=== PATIENT | male | born 1965 | race Caucasian/White ===

== ENCOUNTER → 2016-08-01 | Outpatient (REF) | payer OTHER | LOC: M LAB REF 09:46 | PROVIDERS: ATTEND Physician Assistant | DX: J02.9 Acute pharyngitis, unspecified (principal) ==

== ENCOUNTER → 2016-11-05 | Outpatient (CLI) | payer OTHER ==
[~2016-11-05] MED LIST: NASA1SPR; PROA1AER INH; PULM90IN INH; TUMERIC PO
[2016-11-06 09:55] LABS: HEPATITIS B SURFACE ANTIBODY POSITIVE (POSITIVE)
== END ==
LOC: M WUC 12:38
PROVIDERS: ATTEND Physician Assistant
DX: Z02.0 Encounter for examination for admission to educational institution (principal)

== ENCOUNTER → 2016-11-10 | Outpatient (REF) | payer OTHER | LOC: M LAB REF 09:40 | PROVIDERS: ATTEND Physician Assistant | DX: J02.9 Acute pharyngitis, unspecified (principal) ==

== ENCOUNTER 2016-12-01 15:09 | Emergency (ER) | payer BC, OTHER ==
[~2016-12-01] VITALS: Ht 182.9 cm; Wt 77.1 kg
--- NOTE | 2016-12-01 15:56 | REP ---
CT Head without contrast HISTORY: Trauma COMPARISON: None There is no intraparenchymal hemorrhage, acute infarct, mass or midline shift. The ventricular system is normal in appearance. There is no extra cerebral collection. There is no fracture. The visualized sinuses are clear. IMPRESSION: There is no intracranial lesion. Signed by Piotr Barba MD 12/01/2016 03:47 P
[2016-12-01] MEDS ORDERED: ACETAMINOPHEN 325 MG TAB PO ONE (16:15)
[2016-12-01] MEDS ORDERED: BACLOFEN 10 MG TAB PO ONE (16:15)
[2016-12-01] MEDS ORDERED: TYLE325T5 PO (16:22)
[2016-12-01] MEDS ORDERED: BACL10TA2 PO (16:22)
[2016-12-01 16:25] VITALS: BP 148/77
--- NOTE | 2016-12-02 06:13 | REP ---
CT CERVICAL SPINE WITHOUT CONTRAST: HISTORY: Injury. There is no acute fracture or subluxation. A disc bulge is present at the C4-5 level. Disc bulges with associated osteophyte formation are present at the C5-6 and C6-7 levels. There is minimal narrowing of the spinal canal. Uncinate process hypertrophy is present at the C5-6 and C6-7 levels. This produces minimal to mild narrowing of the neural foramina. The C5-6 and C6-7 intervertebral discs are decreased in height consistent with disc degeneration. IMPRESSION: 1. There is no acute fracture or subluxation. 2. There is cervical spondylosis at the C4-5 through C6-7 levels. Signed by Piotr Barba MD 12/02/2016 08:22 A
== END 2016-12-01 16:40 | disposition home or self-care (01) ==
LOC: M ED 15:32
DX: S00.83XA Contusion of other part of head, initial encounter (principal); S16.1XXA Strain of muscle, fascia and tendon at neck level, initial encounter; W18.2XXA Fall in (into) shower or empty bathtub, initial encounter; Y92.89 Other specified places as the place of occurrence of the external cause; Y93.E1 Activity, personal bathing and showering; Y99.8 Other external cause status; R03.0 Elevated blood-pressure reading, without diagnosis of hypertension; J45.909 Unspecified asthma, uncomplicated; Z79.899 Other long term (current) drug therapy; Z79.51 Long term (current) use of inhaled steroids; Z91.011 Allergy to milk products; Z88.6 Allergy status to analgesic agent; Z91.018 Allergy to other foods; Z91.012 Allergy to eggs

== ENCOUNTER → 2017-07-07 | Outpatient (CLI) | payer OTHER, BC ==
[2017-07-07 18:52] LABS: COMPLEMENT C3 105 MG/DL (90-180); COMPLEMENT C4 24.1 MG/DL (10-40); IMMUNOGLOBULIN G 716 MG/DL (681-1648); IMMUNOGLOBULIN M 88.4 MG/DL (40-230)
[2017-07-09 08:16] LABS: ALPHA 1 ANTITRYPSIN 118 mg/dL (90-200)
== END ==
LOC: M WUC 12:13
DX: J30.1 Allergic rhinitis due to pollen (principal); J30.81 Allergic rhinitis due to animal (cat) (dog) hair and dander; R05 Cough

== ENCOUNTER → 2017-09-16 | Outpatient (CLI) | payer OTHER, BC | LOC: M WUC 09:53 | DX: J30.1 Allergic rhinitis due to pollen (principal); J30.81 Allergic rhinitis due to animal (cat) (dog) hair and dander; J30.89 Other allergic rhinitis; L20.9 Atopic dermatitis, unspecified; J45.20 Mild intermittent asthma, uncomplicated | CPT/HCPCS: 82785 ==

== ENCOUNTER → 2017-09-29 | Outpatient (REF) | payer OTHER | LOC: M LAB REF 12:11 | DX: J02.9 Acute pharyngitis, unspecified (principal) | CPT/HCPCS: 87081 ==

== ENCOUNTER → 2017-12-08 | Outpatient (CLI) | payer SELFPAY ==
[2017-12-10 08:42] LABS: HEPATITIS B SURFACE ANTIBODY POSITIVE (POSITIVE)
[2017-12-10 09:03] LABS: HIV 1&2 SCREEN CENTAUR NEGATIVE (NEGATIVE)
[2017-12-10 09:03] LABS: HEPATITIS C VIRUS ABY INDEX 0.1 INDEX (<0.8)
== END ==
LOC: M ADAMS 15:11
DX: Z11.59 Encounter for screening for other viral diseases (principal); Z11.4 Encounter for screening for human immunodeficiency virus [HIV]; W46.1XXA Contact with contaminated hypodermic needle, initial encounter; X58.XXXA Exposure to other specified factors, initial encounter; Y92.9 Unspecified place or not applicable; Y93.9 Activity, unspecified
CPT/HCPCS: 86706

== ENCOUNTER → 2018-01-22 | Outpatient (CLI) | payer OTHER ==
[2018-01-23 10:07] LABS: HEPATITIS B SURFACE ANTIBODY POSITIVE (POSITIVE)
[2018-01-23 10:33] LABS: HEPATITIS C VIRUS ABY INDEX 0.4 INDEX (<0.8)
[2018-01-23 10:33] LABS: HIV 1&2 SCREEN CENTAUR NEGATIVE (NEGATIVE)
== END ==
LOC: M WUC 09:44
DX: Z11.4 Encounter for screening for human immunodeficiency virus [HIV] (principal); Z11.59 Encounter for screening for other viral diseases; W46.1XXA Contact with contaminated hypodermic needle, initial encounter; Y92.89 Other specified places as the place of occurrence of the external cause
CPT/HCPCS: 86706

== ENCOUNTER → 2018-02-09 | Outpatient (CLI) | payer OTHER, BC ==
[2018-02-09 17:45] LABS: BASO # 0.1 10^3/uL (0.0-0.2); BASO % 1.2 % (0.0-1.0); EOS # 0.8 10^3/uL (0.0-0.50); EOS % 11.4 % (0.0-3.0); HEMOGLOBIN 15.3 g/dl (13.5-17.5); IMMATURE GRANULOCYTE % 0.4 % (0-3.0); LYMPH # 1.3 10^3/uL (1.5-4.5); LYMPH % 19.5 % (24.0-44.0); MEAN CORPUSCULAR HEMOGLOBIN 32.7 pg (27.0-33.0); MEAN CORPUSCULAR HGB CONC 32.6 g/dl (32.0-36.5); MEAN CORPUSCULAR VOLUME 100.4 fl (80.0-96.0); MONO # 0.5 10^3/uL (0.0-0.8); MONO % 7.5 % (0.0-5.0); NEUTROPHILS # 4.1 10^3/uL (1.8-7.7); PLATELET COUNT, AUTOMATED 288 10^3/uL (150-450); RED BLOOD COUNT 4.68 10^6/uL (4.30-6.10); RED CELL DISTRIBUTION WIDTH 13.5 % (11.5-14.5); WHITE BLOOD COUNT 6.8 10^3/uL (4.0-10.0)
[2018-02-09 17:57] LABS: ALBUMIN/GLOBULIN RATIO 1.33 (1.00-1.93); ALKALINE PHOSPHATASE 51 U/L (45-117); ALT/SGPT 27 U/L (12-78); AST/SGOT 17 U/L (7-37); BILIRUBIN,DIRECT 0.1 MG/DL (0.0-0.2); BILIRUBIN,TOTAL 0.4 MG/DL (0.2-1.0); BLOOD UREA NITROGEN 10 MG/DL (7-18); GLOMERULAR FILTRATION RATE > 60.0 (>56)
[2018-02-11 09:10] LABS: HEPATITIS B SURFACE ANTIGEN NEGATIVE (NEGATIVE)
[2018-02-11 09:27] LABS: HEPATITIS B CORE ANTIBODY IGM NEGATIVE (NEGATIVE)
[2018-02-11 09:27] LABS: HEPATITIS C VIRUS ABY INDEX 0.1 INDEX (<0.8)
[2018-02-11 09:29] LABS: HEPATITIS A ANTIBODY IGM NEGATIVE (NEGATIVE)
== END ==
LOC: M WUC 11:40
DX: L20.89 Other atopic dermatitis (principal)
CPT/HCPCS: 82565

== ENCOUNTER → 2018-04-21 | Outpatient (CLI) | payer OTHER ==
[2018-04-22 10:14] LABS: HEPATITIS C VIRUS ABY INDEX 0.1 INDEX (<0.8)
[2018-04-22 10:14] LABS: HEPATITIS A ANTIBODY IGM NEGATIVE (NEGATIVE); HEPATITIS B CORE ANTIBODY IGM NEGATIVE (NEGATIVE); HEPATITIS B SURFACE ANTIGEN NEGATIVE (NEGATIVE); HIV 1&2 SCREEN CENTAUR NEGATIVE (NEGATIVE)
== END ==
LOC: M WUC 12:02
DX: Z11.59 Encounter for screening for other viral diseases (principal); W46.0XXD Contact with hypodermic needle, subsequent encounter
CPT/HCPCS: 87340

== ENCOUNTER → 2018-04-28 | Outpatient (CLI) | payer OTHER, BC ==
[2018-04-28 13:52] LABS: BASO # 0.1 10^3/uL (0.0-0.2); BASO % 1.3 % (0.0-1.0); EOS % 11.5 % (0.0-3.0); HEMATOCRIT 49.3 % (42.0-52.0); HEMOGLOBIN 16.4 g/dl (13.5-17.5); IMMATURE GRANULOCYTE % 0.4 % (0-3.0); LYMPH # 1.6 10^3/uL (1.5-4.5); MEAN CORPUSCULAR HEMOGLOBIN 32.3 pg (27.0-33.0); MEAN CORPUSCULAR HGB CONC 33.3 g/dl (32.0-36.5); MEAN CORPUSCULAR VOLUME 97.2 fl (80.0-96.0); MONO # 0.5 10^3/uL (0.0-0.8); MONO % 5.9 % (0.0-5.0); NEUTROPHILS # 5.2 10^3/uL (1.8-7.7); NEUTROPHILS % 61.9 % (36.0-66.0); PLATELET COUNT, AUTOMATED 306 10^3/uL (150-450); RED BLOOD COUNT 5.07 10^6/uL (4.30-6.10); RED CELL DISTRIBUTION WIDTH 13.4 % (11.5-14.5); WHITE BLOOD COUNT 8.4 10^3/uL (4.0-10.0)
[2018-04-28 14:33] LABS: ALBUMIN 4.3 GM/DL (3.2-5.2); ALBUMIN/GLOBULIN RATIO 1.54 (1.00-1.93); ALKALINE PHOSPHATASE 57 U/L (45-117); ALT/SGPT 51 U/L (12-78); ANION GAP 6 MEQ/L (8-16); AST/SGOT 34 U/L (7-37); BILIRUBIN,TOTAL 0.4 MG/DL (0.2-1.0); BLOOD UREA NITROGEN 15 MG/DL (7-18); CALCIUM LEVEL 9.5 MG/DL (8.5-10.1); CARBON DIOXIDE LEVEL 29 MEQ/L (21-32); CHLORIDE LEVEL 104 MEQ/L (98-107); CREATININE FOR GFR 1.07 MG/DL (0.70-1.30); FREE THYROXINE INDEX 2.6 % (1.4-3.8); GLOMERULAR FILTRATION RATE > 60.0 (>56); GLUCOSE, FASTING 91 MG/DL (70-100); POTASSIUM SERUM 4.4 MEQ/L (3.5-5.1); RHEUMATOID FACTOR QUANT < 10.0 IU/ML (<15.0); SODIUM LEVEL 139 MEQ/L (136-145); T UPTAKE 31 % (33-40); THYROXINE (T4) 8.3 UG/DL (4.5-12.0); TOTAL PROTEIN 7.1 GM/DL (6.4-8.2)
[2018-04-29 10:39] LABS: THYROID PEROXIDASE ANTIBODY < 28.0 U/ML (<60.0)
[2018-04-29 10:41] LABS: THYROGLOBULIN ANTIBODY 28.7 U/ML (<60.0)
[2018-05-01 00:09] LABS: ANTI DOUBLE STRAND-DNA AB 1 IU/mL (0-9); ANTINUCLEAR ANTIBODIES DIRECT Negative (Negative); COMPLEMENT TOTAL (CH50) 50 U/mL (>41); D001-IgE D pteronyssinus >100 kU/L (Class VI); E005-IgE Dog Dander > 100 kU/L (Class VI); G002-IgE Bermuda Grass 3.54 kU/L (Class III); M003 IgE Aspergillus fumigatu 4.05 kU/L (Class IV); RNP ANTIBODIES <0.2 AI (0.0-0.9); SJOGREN'S ANTI SS-A <0.2 AI (0.0-0.9); SJOGREN'S ANTI SS-B <0.2 AI (0.0-0.9); SMITH ANTIBODIES <0.2 AI (0.0-0.9); T001-IgE Maple/Box Elder 1.91 kU/L (Class III); T003-IgE Common Silver Birch 4.99 kU/L (Class IV); T006-IgE Cedar, Mountain 1.63 kU/L (Class III); T007-IgE Oak, White 2.23 kU/L (Class III); T008-IgE Elm, American 2.47 kU/L (Class III); T015-IgE Ash, White 2.88 kU/L (Class III); T070-IgE White Mulberry 0.54 kU/L (Class I); W001-IgE Ragweed, Short 6.12 kU/L (Class IV); W009-IgE Plantain, English 2.37 kU/L (Class III); W014-IgE Pigweed, Rough 1.38 kU/L (Class II); W018-IgE Sheep Sorrel 0.87 kU/L (Class II)
== END ==
LOC: M WUC 12:02
DX: L20.9 Atopic dermatitis, unspecified (principal); L50.9 Urticaria, unspecified; D82.4 Hyperimmunoglobulin E [IgE] syndrome
CPT/HCPCS: 82785

== ENCOUNTER → 2018-06-09 | Outpatient (CLI) | payer OTHER ==
[2018-06-10 09:48] LABS: HEPATITIS A ANTIBODY IGM NEGATIVE (NEGATIVE); HEPATITIS B CORE ANTIBODY IGM NEGATIVE (NEGATIVE); HEPATITIS B SURFACE ANTIGEN NEGATIVE (NEGATIVE); HIV 1&2 SCREEN CENTAUR NEGATIVE (NEGATIVE)
[2018-06-10 09:48] LABS: HEPATITIS C VIRUS ABY INDEX 0.2 INDEX (<0.8)
== END ==
LOC: M WUC 09:27
DX: Z11.59 Encounter for screening for other viral diseases (principal); W46.0XXD Contact with hypodermic needle, subsequent encounter
CPT/HCPCS: 87340

== ENCOUNTER → 2018-07-15 | Outpatient (CLI) | payer BC, OTHER ==
[~2018-07-15] MED LIST changes: +BACL10TA2 PO; -PROA1AER INH; +PROAAER10 INH; +TYLE325T5 PO
--- NOTE | 2018-07-15 16:00 | REP ---
LEFT HAND, FOUR VIEWS: HISTORY: Pain. There is no acute fracture or dislocation. The joint spaces are normal in appearance. IMPRESSION: There is no acute fracture or dislocation. Electronically Signed by Piotr Barba MD 07/15/2018 04:03 P
== END ==
LOC: M WUC 15:06
PROVIDERS: ATTEND Physician Assistant
DX: L03.114 Cellulitis of left upper limb (principal); M79.642 Pain in left hand

== ENCOUNTER 2018-08-19 07:29 | Day surgery (SDC) | payer BC, OTHER ==
[~2018-08-19] VITALS: Ht 182.9 cm; Wt 75.7 kg
[~2018-08-19 07:29] MED LIST changes: +FLUT11IN INH; +VITATAB11 PO
[2018-08-19] MEDS ORDERED: NS 1,000 ML IV ONE (07:45)
[2018-08-19] MEDS ORDERED: PROPOFOL 200 MG/20 ML VIAL As Ordered ONE (08:59)
--- NOTE | 2018-08-19 09:03 | ROOR ---
Patient Name: Adriel Mcneil Procedure Date: 08/19/2018 8:36 AM Date of : 1965 Age: 52 Room: [facility] Gender: Male Note Status: Finalized Procedure: Upper Endoscopy + Biopsies + Balloon Dilatation Indications: Dysphagia Providers: Dany Grover MD Referring MD: VIDHYA MONTIEL JR, MD Requesting Provider: Medicines: Monitored Anesthesia Care Complications: No immediate complications. Procedure: Pre-Anesthesia Assessment: - The heart rate, respiratory rate, oxygen saturations, blood pressure, adequacy of pulmonary ventilation, and response to care were monitored throughout the procedure. The Endoscope was introduced through the mouth, and advanced to the second part of duodenum. The upper GI endoscopy was accomplished without difficulty. The patient tolerated the procedure well. Findings: The Z-line was regular and was found 40 cm from the incisors. A low-grade of narrowing Schatzki ring was found at the gastroesophageal junction. A TTS dilator was passed through the scope. Dilation with an 18-19-20 mm balloon dilator was performed to 20 mm. The dilation site was examined and showed complete resolution of luminal narrowing. Mucosal changes including longitudinal furrows were found in the mid esophagus. Biopsies were taken with a cold forceps for histology. No other significant abnormalities were identified in a careful examination of the stomach. The exam of the duodenum was otherwise normal. Impression: - Z-line regular, 40 cm from the incisors. - Low-grade of narrowing Schatzki ring. Dilated. - Esophageal mucosal changes suspicious for eosinophilic esophagitis. Biopsied. - The examination was otherwise normal. Recommendation: - Await pathology results. - Discharge patient to home. - Continue present medications. - Return to referring physician. - Repeat upper endoscopy to evaluate the response to therapy. - Return to referring physician. - The findings and recommendations were discussed with the patient's family. Dany Grover MD Dany Grover MD 08/19/2018 9:02:50 AM This report has been signed electronically. Number of Addenda: 0 Note Initiated On: 08/19/2018 8:36 AM Estimated Blood Loss: Estimated blood loss: none.
--- NOTE | 2018-08-19 09:16 | ROOR ---
Patient Name: Adriel Mcneil Procedure Date: 08/19/2018 8:37 AM Date of : 1965 Age: 52 Room: [facility] Gender: Male Note Status: Finalized Procedure: Total Colonoscopy to Cecum Indications: Screening for colorectal malignant neoplasm Providers: Dany Grover MD Referring MD: VIDHYA MONTIEL JR, MD Requesting Provider: Medicines: Monitored Anesthesia Care Complications: No immediate complications. Procedure: Pre-Anesthesia Assessment: - The heart rate, respiratory rate, oxygen saturations, blood pressure, adequacy of pulmonary ventilation, and response to care were monitored throughout the procedure. The Colonoscope was introduced through the anus and advanced to the cecum, identified by appendiceal orifice and ileocecal valve. The colonoscopy was performed without difficulty. The patient tolerated the procedure well. The quality of the bowel preparation was excellent. Findings: The perianal and digital rectal examinations were normal. Non-bleeding internal hemorrhoids were found during retroflexion. The hemorrhoids were small and Grade I (internal hemorrhoids that do not prolapse). No other significant abnormalities were identified in a careful examination of the remainder of the colon. The exam was otherwise without abnormality on direct and retroflexion views. Impression: - Non-bleeding internal hemorrhoids. - The examination was otherwise normal on direct and retroflexion views. - No specimens collected. - The exam was otherwise normal to the cecum. Recommendation: - Patient has a contact number available for emergencies. The signs and symptoms of potential delayed complications were discussed with the patient. Return to normal activities tomorrow. Written discharge instructions were provided to the patient. - High fiber diet. - Discharge patient to home. - Continue present medications. - Repeat colonoscopy in 10 years for screening purposes. - Return to referring physician. - The findings and recommendations were discussed with the patient's family. Dany Grover MD Dany Grover MD 08/19/2018 9:16:37 AM This report has been signed electronically. Number of Addenda: 0 Note Initiated On: 08/19/2018 8:37 AM Estimated Blood Loss: Estimated blood loss: none.
[2018-08-19] MEDS ORDERED: LIDOCAINE 2% INJ 100 MG/5 ML SDV (FOR ANES.) As Ordered ONE (09:43)
[2018-08-19 09:46] VITALS: BP 140/85
== END 2018-08-19 09:54 | disposition home or self-care (01) ==
LOC: M OPP 07:29
PROVIDERS: ATTEND Internal Medicine Gastroenterology
DX: Z12.11 Encounter for screening for malignant neoplasm of colon (principal); K64.0 First degree hemorrhoids; K22.2 Esophageal obstruction; K22.8 Other specified diseases of esophagus; R13.10 Dysphagia, unspecified; Z88.0 Allergy status to penicillin; Z88.8 Allergy status to other drugs, medicaments and biological substances; J30.2 Other seasonal allergic rhinitis; Z91.040 Latex allergy status; Z91.010 Allergy to peanuts; Z91.011 Allergy to milk products; Z91.012 Allergy to eggs; Z91.018 Allergy to other foods

== ENCOUNTER → 2018-12-14 | Outpatient (CLI) | payer OTHER ==
[2018-12-15 09:51] LABS: HIV 1&2 SCREEN CENTAUR NEGATIVE (NEGATIVE)
[2018-12-16 11:22] LABS: HEPATITIS A ANTIBODY IGM NEGATIVE (NEGATIVE); HEPATITIS B CORE ANTIBODY IGM NEGATIVE (NEGATIVE); HEPATITIS B SURFACE ANTIGEN NEGATIVE (NEGATIVE)
== END ==
LOC: M WUC 12:55
PROVIDERS: ATTEND Physician Assistant
DX: Z11.4 Encounter for screening for human immunodeficiency virus [HIV] (principal); W46.0XXD Contact with hypodermic needle, subsequent encounter; X58.XXXA Exposure to other specified factors, initial encounter

== ENCOUNTER → 2019-04-27 | Outpatient (CLI) | payer OTHER ==
[2019-04-27 13:04] LABS: BASO # 0.1 10^3/uL (0.0-0.2); BASO % 1.3 % (0.0-1.0); EOS # 1.4 10^3/uL (0.0-0.5); EOS % 15.9 % (0.0-3.0); HEMATOCRIT 45.4 % (42.0-52.0); LYMPH # 1.5 10^3/uL (1.5-5.0); LYMPH % 16.7 % (24.0-44.0); MONO # 0.9 10^3/uL (0.0-0.8); MONO % 9.7 % (0.0-5.0); NEUTROPHILS # 4.9 10^3/uL (1.5-8.5); NEUTROPHILS % 56.2 % (36.0-66.0); PLATELET COUNT, AUTOMATED 286 10^3/uL (150-450); RED BLOOD COUNT 4.54 10^6/uL (4.30-6.10); WHITE BLOOD COUNT 8.7 10^3/uL (4.0-10.0)
[2019-04-27 13:43] LABS: FREE THYROXINE INDEX 3.4 % (1.4-3.8); THYROID STIMULATING HORMONE 0.965 uIU/ML (0.358-3.740); THYROXINE (T4) 8.4 UG/DL (4.5-12.0)
== END ==
LOC: M WUC 09:29
PROVIDERS: ATTEND Nurse Practitioner Family
DX: R53.83 Other fatigue (principal); L65.9 Nonscarring hair loss, unspecified

== ENCOUNTER → 2019-07-08 | Outpatient (REF) | payer OTHER | LOC: M LAB REF 14:22 | PROVIDERS: ATTEND Internal Medicine | DX: D72.1 Eosinophilia (principal) ==

== ENCOUNTER → 2019-07-13 | Outpatient (CLI) | payer BC, OTHER ==
--- NOTE | 2019-07-14 03:26 | REP ---
Clinical: Trauma. Open wound. Technique: AP, lateral, bilateral oblique views of the left foot. Findings: The osseous structures and joint spaces are intact and normal. There is no evidence for acute fracture or dislocation. Surrounding soft tissues are unremarkable. No subcutaneous emphysema or radiodense foreign body. Impression: Normal left foot examination. No foreign body or subcutaneous emphysema. No acute fracture or dislocation. Electronically Signed by Davi Nur MD 07/14/2019 03:17 A
== END ==
LOC: M WUC 10:01
PROVIDERS: ATTEND Physician Assistant
DX: S91.102A Unspecified open wound of left great toe without damage to nail, initial encounter (principal); W18.30XA Fall on same level, unspecified, initial encounter; Y92.009 Unspecified place in unspecified non-institutional (private) residence as the place of occurrence of the external cause

== ENCOUNTER → 2019-07-23 | Outpatient (CLI) | payer BC, OTHER ==
--- NOTE | 2019-07-23 17:52 | REP ---
Left toes four views: Mineralization is normal. There are no lytic, blastic or destructive skeletal changes. The joint spaces are unremarkable. There are no calcifications or foreign bodies. No fracture or dislocation. Impression: Negative left hilus. Electronically Signed by Malik Field MD 07/23/2019 05:44 P
== END ==
LOC: M WUC 13:22
PROVIDERS: ATTEND Physician Assistant
DX: L03.032 Cellulitis of left toe (principal)

== ENCOUNTER → 2020-02-23 | Outpatient (CLI) | payer BC, OTHER ==
[2020-02-23 14:16] LABS: IMMUNOGLOBULIN M 89.2 MG/DL (40-230)
[2020-02-25 16:09] LABS: ALPHA 1 ANTITRYPSIN 127 mg/dL (101-187); F004-IgE Wheat 3.89 kU/L (Class III); F026-IgE Pork 1.14 kU/L (Class II); F027-IgE Beef 0.29 kU/L (Class 0/I); FX02-IgE Food Mix (Sea Foods) Positive (.); G002-IgE Bermuda Grass 2.12 kU/L (Class III); M001-IgE Penicillium chrysogen 0.76 kU/L (Class II); M003 IgE Aspergillus fumigatu 3.11 kU/L (Class III); T001-IgE Maple/Box Elder 2.01 kU/L (Class III); T007-IgE Oak, White 6.21 kU/L (Class IV); T008-IgE Elm, American 7.29 kU/L (Class IV); T015-IgE Ash, White 7.66 kU/L (Class IV); T070-IgE White Mulberry 0.49 kU/L (Class I); W001-IgE Ragweed, Short 5.26 kU/L (Class IV); W009-IgE Plantain, English 6.15 kU/L (Class IV); W014-IgE Pigweed, Rough 0.66 kU/L (Class II); W018-IgE Sheep Sorrel 1.51 kU/L (Class III)
== END ==
LOC: M WUC 09:42
PROVIDERS: ATTEND Nurse Practitioner Family
DX: L20.9 Atopic dermatitis, unspecified (principal); J30.1 Allergic rhinitis due to pollen; J30.81 Allergic rhinitis due to animal (cat) (dog) hair and dander; J30.89 Other allergic rhinitis

== ENCOUNTER → 2020-08-28 | Outpatient (CLI) | payer BC, OTHER ==
--- NOTE | 2020-08-29 07:28 | REP ---
INDICATION: PAIN COMPARISON: None. TECHNIQUE: AP, lateral, bilateral oblique and sunrise views. FINDINGS: Lateral and sunrise views best demonstrate anterior/prepatellar swelling. No evidence for acute fracture or dislocation. No significant overt arthritic changes. IMPRESSION: Anterior swelling. <Electronically signed by Davi Nur > 08/28/20 [id number]
== END ==
LOC: M WUC 13:47
PROVIDERS: ATTEND Physician Assistant
DX: M25.561 Pain in right knee (principal)

== ENCOUNTER → 2021-08-24 | Outpatient (CLI) | payer BC, OTHER | LOC: M WUC 15:41 | PROVIDERS: ATTEND Physician Assistant | DX: S80.02XA Contusion of left knee, initial encounter (principal); X58.XXXA Exposure to other specified factors, initial encounter; Y92.89 Other specified places as the place of occurrence of the external cause; Y93.89 Activity, other specified; Y99.8 Other external cause status ==

== ENCOUNTER → 2021-09-11 | Outpatient (REF) | payer OTHER | LOC: M LAB REF 17:02 | PROVIDERS: ATTEND Physician Assistant | DX: M70.42 Prepatellar bursitis, left knee (principal) ==

== ENCOUNTER → 2022-03-18 | Outpatient (CLI) | payer OTHER ==
[2022-03-18 15:37] LABS: IMMUNOGLOBULIN M 93.8 MG/DL (40-230)
[2022-03-24 06:41] LABS: ALPHA 1 ANTITRYPSIN 140 mg/dL (101-187); E003-IGE HORSE EPITHELIA/DAND 2.53 kU/L (Class III); F004-IgE Wheat 4.39 kU/L (Class IV); F017-IgE Filbert/Hazlnut 4.68 kU/L (Class IV); F018-IgE Brazil Nut 0.85 kU/L (Class II); F020-IgE Almond 2.47 kU/L (Class III); F026-IgE Pork 0.29 kU/L (Class 0/I); F027-IgE Beef 0.15 kU/L (Class 0/I); FX02-IgE Food Mix (Sea Foods) Positive (.)
== END ==
LOC: M WUC 11:37
PROVIDERS: ATTEND Allergy & Immunology
DX: J30.1 Allergic rhinitis due to pollen (principal); J32.0 Chronic maxillary sinusitis